=== PATIENT | female | born 1970 | race Two or more races ===

== ENCOUNTER 2020-07-06 09:23 | Outpatient (CLI) | payer MEDICAID ==
[2020-07-06] VITALS (7 sets, daily range): BP systolic 140–174; BP diastolic 74–87
[~2020-07-06] VITALS: Ht 30.5 cm; Wt 59.0 kg
[2020-07-06] MEDS ORDERED: BAMLANIVIMAB 700MG/200ML 200 ML IV ONE (10:00)
== END 2020-07-06 13:00 | disposition home or self-care (01) ==
LOC: ER 09:23
PROVIDERS: ATTEND Internal Medicine
DX: Z23 Encounter for immunization (principal); U07.1 COVID-19
CPT/HCPCS: M0239; Q0239

== ENCOUNTER 2024-04-18 18:54 | Emergency (ER) | payer MEDICAID ==
[~2024-04-18] VITALS: Ht 152.4 cm; Wt 63.8 kg
--- NOTE | 2024-04-18 19:42 | ED.PDOC ---
History of Present Illness HPI Comments 53 y/o F, with a Hx of CA, DM, HLD, and HTN, presents with c/o HTN, left-side of lip swelling, and throat pain, today. Patient reports being sent from [facility] urgent care after being found with elevated blood pressure s/p, initially, seen for lip swelling and throat pain s/p insect envenomation, today. Patient comments on being stung by a bee after taking a sip of her drink she left in her vehicle w/o a lid with the windows down, earlier. Patient endorses on Hx of medication compliancy with her Losartan medication but informs on not taking any, today. Patient reports no additional relevant or pertinent past medical, surgical, or family Hx. Patient denies having any shortness of breath, throat swelling, dizziness, headache, vision or speech changes, nausea, vomiting, fever, chills, or other associated symptoms or modifiers at this time. 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 Family History Family History: Unknown Social History Smoker: Non-Smoker Alcohol: Denies ETOH Use Drugs: Denies Drug Use Lives In: Home Constitutional: denies: chills, diaphoresis, fatigue, fever, malaise, sweats, weakness, others EENTM: reports: throat pain, others (left-side of lip swelling ); denies: blurred vision, double vision, ear bleeding, ear discharge, ear drainage, ear pain, ear ringing, eye pain, eye redness, hearing loss, mouth pain, mouth swelling, nasal discharge, nose bleeding, nose congestion, nose pain, photophobia, tearing, throat swelling, voice changes Respiratory: denies: cough, hemoptysis, orthopnea, SOB at rest, shortness of breath, SOB with excertion, stridor, wheezing, others Cardiovascular: denies: chest pain, dizzy spells, diaphoresis, Dyspnea on exertion, edema, irregular heart beat, left arm pain, lightheadedness, palpitations, PND, syncope, others Gastrointestinal: denies: abdomen distended, abdominal pain, blood streaked bowels, constipated, diarrhea, dysphagia, difficulty swallowing, hematemesis, melena, nausea, poor appetite, poor fluid intake, rectal bleeding, rectal pain, vomiting, others Genitourinary: denies: abnormal vagina bleeding, burning, dyspareunia, dysuria, flank pain, frequency, hematuria, incontinence, pain, , vagina discharge, urgency, others Neurological: denies: dizziness, fainting, headache, left sided numbness, left sided weakness, numbness, paresthesia, pre-existing deficit, right sided numbness, right sided weakness, seizure, speech problems, tingling, tremors, weakness, others Musculoskeletal: denies: back pain, gout, joint pain, joint swelling, muscle pain, muscle stiffness, neck pain, others Integumetry: denies: bruises, change in color, change in hair/nails, dryness, laceration, lesions, lumps, rash, wounds, others Allergic/Immunocompromised: denies: Difficulty Healing, Frequent Infections, Hives, Itching, others Hematologic/Lymphatic: reports: others (HTN); denies: anemia, blood clots, easy bleeding, easy bruising, swollen glands Endocrine: denies: excessive hunger, excessive sweating, excessive thirst, excessive urination, flushing, intolerance to cold, intolerance to heat, unexplained weight gain, unexplained weight loss, others Psychiatric: denies: anxiety, bipolar disorder, depression, hopeless, panic disorder, schizophrenia, sleepless, suicidal, others All Other Systems: Reviewed and Negative Physical Exam General Appearance: No Apparent Distress, Normal HEENT: Normal ENT Inspection, Pharynx Normal, TMs Normal, Other (left-side of lip swelling) Neck: Full Range of Motion, Non-Tender, Normal, Normal Inspection Respiratory: Chest Non-Tender, Lungs Clear, No Accessory Muscle Use, No Respiratory Distress, Normal Breath Sounds Cardiovascular: No Edema, No JVD, No Murmur, No Gallop, Normal Peripheral Pulses, Regular Rate/Rhythm Breast Exam: Deferred Gastrointestinal: No Organomegaly, Non Tender, No Pulsatile Mass, Normal Bowel Sounds, Soft Genitalia: Deferred Pelvic: Deferred Rectal: Deferred Extremities: No calf tenderness, Normal capillary refill, Normal inspection, Normal range of motion, Non-tender, No pedal edema Musculoskeletal : Apperance: Normal Neurologic: Alert, atg architect II-XII nml as Tested, No Motor Deficits, Normal Affect, Normal Mood, No Sensory Deficits Cerebellar Function: Normal Reflexes: Normal Skin: Dry, Normal Color, Warm Lymphatic: No Adenopathy Was a procedure done? Was a procedure done?: No Differential Dx Considerations may include: allergic reaction, s/p sting envenomation, medication non-compliancy X-Ray, Labs, Meds, VS Vital Signs Date Time Temp Pulse Resp B/P (MAP) Pulse Ox O2 Delivery O2 Flow Rate FiO2 04/18/24 20:14 195/91 04/18/24 20:07 61 16 100 Room Air* 0 21 04/18/24 20:07 61 16 195/91 (125) 100 04/18/24 18:56 97.1 70 16 233/101 (145) 98 214/113 (146) Lab Test 04/18/24 19:05 Range/Units POC Glucose 96 70-106 mg/dl Current Medications Medications (Trade) Dose Ordered Sig/Federico Route Start Time Stop Time Status Last Admin Clonidine HCl (Catapres Tablet) 0.2 mg ONCE ONCE PO 04/18/24 19:30 04/18/24 19:31 DC 04/18/24 20:14 Time of 1ST Reevaluation: 19:45 Reevaluation 1ST: Unchanged Patient Education/Counseling: Diagnosis, Treatment Family Education/Counseling: No Family Present Departure 1 Departure Time of Disposition: 21:05 (Here with asymptomatic hypertension in the setting of medication noncompliance. Patient will take her home medicine and go home) Impression: Primary Impression: Asymptomatic hypertension Disposition: HOME / SELF CARE / HOMELESS Condition: Stable Additional Instructions: Your workup today was benign. It is important to take your regular medications. You can take Tylenol or Motrin as needed for pain. You should follow up with your regular doctor within 1 week. You should stay well rested and well hydrated. If your symptoms worsen or you have any other concerns please return to the emergency room. Discharged With: Spouse Critical Care Note Critical Care Time?: No Stability Stability form required: No Heart Score Heart Score: Heart Score Response (Comments) Value History N/A 0 EKG N/A 0 Age N/A 0 Risk Factors N/A 0 Troponin N/A 0 Total 0 I personally scribed for RENETTA COOMBS MD ([email or web address]) on 04/18/24 at 19:42. Electronically submitted by Mark Owens ([email or web address]). RENETTA COOMBS MD Apr 18, 2024 19:42
[2024-04-18 20:07] VITALS: PULSE 61; RESP 16; O2SAT 100
[2024-04-18] MEDS: cloNIDine HCL 0.1 MG TAB PO ONE (20:14)
[2024-04-18 21:38] VITALS: BP 190/72
[2024-04-18 21:47] VITALS: PULSE 64; RESP 16; O2SAT 99
== END 2024-04-18 21:49 | disposition home or self-care (01) ==
LOC: ER 19:01
DX: I10 Essential (primary) hypertension (principal); E11.9 Type 2 diabetes mellitus without complications; E78.5 Hyperlipidemia, unspecified
CPT/HCPCS: 82962